=== PATIENT | female | born 1985 | race Caucasian/White ===

== ENCOUNTER 2019-07-02 14:25 | Emergency (ER) | payer BC ==
[2019-07-02 14:46] VITALS: BP 134/100
--- NOTE | 2019-07-02 15:00 | UC ---
UC General HPI - HPI Summary HPI Summary: Pleasant 34 yo female c/o pelvic cramping and vag blood spotting all day. Est 8 weeks . No fever / chills. No sob / cp / palpitations No GI sx. No new urinary sx (+ usual f/u) No loc, no rash. - History of Current Complaint Chief Complaint: UCAbdominalPain Stated Complaint: PERSONAL Hx Obtained From: Patient, Family/Soa Integration Developer Hx Last Menstrual Period: 8 weeks Pain Intensity: 2 - Allergy/Home Medications Allergies/Adverse Reactions: Allergies Allergy/AdvReac Type Severity Reaction Status Date / Time MS Bee Venom [Bee Venom] Allergy Swelling Verified 04/21/16 14:21 Home Medications: Home Medications Pnv No.95/Ferrous Fum/Folic AC [ Vitamin/Iron 28-0.8 mg] 1 tab PO DAILY 07/02/19 [History Confirmed 07/02/19] PMH/Surg Hx/FS Hx/Imm Hx Previously Healthy: Yes Other History Of: Negative For: Anticoagulant Therapy - Surgical History Surgical History: Yes Surgery Procedure, Year, and Place: dental extractions 12/2015 - Family History Known Family History: Positive: Unknown - Social History Alcohol Use: None Alcohol Amount: 3 glass of wine average Substance Use Type: None Smoking Status (MU): Former Smoker Household Exposure Type: Cigarettes - Immunization History Most Recent Influenza Vaccination: NOT IN 2013 Review of Systems All Other Systems Reviewed And Are Negative: Yes Constitutional: Positive: Negative Skin: Positive: Negative Eyes: Positive: Negative ENT: Positive: Negative Respiratory: Positive: Negative Cardiovascular: Positive: Negative Gastrointestinal: Positive: Other - see hpi Motor: Positive: Negative Neurovascular: Positive: Negative Musculoskeletal: Positive: Negative Neurological: Positive: Negative Psychological: Positive: Negative Is Patient Immunocompromised?: No Physical Exam Triage Information Reviewed: Yes Appearance: Well-Appearing - looks tired, but nad, Well-Nourished Vital Signs: Initial Vital Signs Temp 98.6 F 07/02/19 14:42 Pulse 63 07/02/19 14:42 Resp 18 07/02/19 14:42 BP 134/100 07/02/19 14:42 Pulse Ox 100 07/02/19 14:42 Vital Signs Reviewed: Yes Eye Exam: Normal - perrla eomi sw, cp ENT Exam: Normal - mmm Neck exam: Normal Neck: Positive: Supple Respiratory Exam: Normal Respiratory: Positive: Chest non-tender, Lungs clear, Normal breath sounds, No respiratory distress, No accessory muscle use Abdominal Exam: Other - tender mid low abd no r/g + nabs pelvic examination not done d/t (diff dx's) in [facility] (will send to ED). Musculoskeletal Exam: Normal Neurological Exam: Normal - grossly nonfocao Psychological Exam: Normal - conversing easily and appropriately nad Skin Exam: Normal - nondiaphoretic no visible or reported rash Course/Dx - Course Course Of Treatment: Reviewed urine dip and ucg (see report) D/w pt coa / recommendations re transfer to ED. Ms. Patricio carefully considered, will go to ED. Declines EMS, will go via POV. Questions as posed answered to the best of my ability. - Diagnoses Provider Diagnosis: Threatened Discharge - Sign-Out/Discharge Documenting (check all that apply): Patient Departure All imaging exams completed and their final reports reviewed: No Studies - Discharge Plan Condition: Guarded Disposition: HOME-RECOMMEND TO ED Patient Education Materials: Threatened Miscarriage (ED) Referrals: [facility] [place] [facility] [Outside] Additional Instructions: Please go directly to the Emergency Department. Stop and call 911 if problems in the meantime. Do not eat prior going to the Emergency Department. - Billing Disposition and Condition Condition: GUARDED Disposition: Home-Recommend to ED
--- OUTSIDE RECORDS SUMMARY | 2019-07-02 15:22 | XMS REPORT | Continuity of Care Document ---
:1985 Author Organization [facility] Address [address] [place], [place] [id number] Phone Care Team Providers Name Role Phone Ricci ROBERTS, Dennise Unavailable Unavailable PPSFL, NURSE OR MA Unavailable Unavailable Allergies, Adverse Reactions, Alerts Substance Reaction Status No Known Allergies Active Medications Medication Instructions Dosage Effective Dates (start - stop) Status Comments No Drug Therapy Prescribed Problems Condition Effective Dates (start - stop) Clinical Status Comments Encounter for test, result positive Procedures Procedure Date POSITIVE TEST MA ONLY VISIT NEW OTHER Medical Services Scow Captain.Svc. Other Results Test Name Date and Time Measure Units Reference Range Abnormal Flag Status Comments Panel Description: High Sensitivity Urine Test Final High Sensitivity Urine 17:44:51 PositiveInternal Quality Final Test Control: Positive Advance Directives Directive Yes / No Effective Date File Name No information Encounters Encounter Practice Location Reason(s) Diagnoses Date Provider Providers Description For Visit Copied on Encounter [facility] Encounter Ricci [facility] (chief for -2019 Dennise. [address]: Y[address] woo) [address], Dennise Finger test, [place], [place], [facility], [address] [address]. s, [address], positive tel:[phone], [place], [address] [place], [id number], [place], [address]. [place] tel:[phone] tel:[phone] sulting Provider: NURSE OR MA PPSFL. Family History Family Member Diagnosis Age At Onset No information Immunizations Vaccine Date Status Comments No information Payers Payer name Insurance type Covered alliance party ID Authorization(s) [facility] [id number] Social History Type Description Quantity Date Captured Comments Alcohol Use Details Unknown Caffeine Use Details Unknown Tobacco Use Status Unknown Smoking Status Former smoker Non-Smoking Tobacco : No Details Available : No Details Available 2018 Use Details Sex Female Vital Signs Date / Height Weight BMI Pulse Blood Temperature Respiratory Body Head BMI Pulse Inhaled Time: Rate Pressure Rate Surface Circumference percentile Ox Ox Area No information Chief Complaint And Reason For Visit Most recent encounter only, dated '05/26/2019 17:00'. Test ( chief complaint) Reason For Referral Reason For Referral No information Plan Of Treatment Date Type Action Status No information History Of Present Illness Encounter Date Complaint History Of Present Illness No information Functional Status Date Functional Assessment No information Medications Administered Medication Instructions Dosage Effective Dates (start - stop) Status Comments No Drug Therapy Prescribed Instructions Date Instruction Additional Information No information Assessments Type Assessment Date assessment Encounter for test, result positive Goals Health Concern Goal Type Priority Status Date No information Medical Equipment Description Device Paulina Device Identifier Effective Dates (start - stop ) Status No information Mental Status Date Cognitive Assessment No information Health Concerns Observation Date No information Concern Status Date No information
--- NOTE | 2019-07-04 07:31 | UC ---
- Progress Note Progress Note: urine Cx final report: no growth(<1000 cfu/ml) She was sent and seen in ER and has an appointment with OB on 07/08. No change in plan Course/Dx - Diagnoses Provider Diagnoses: Threatened Discharge - Sign-Out/Discharge Documenting (check all that apply): Post-Discharge Follow Up All imaging exams completed and their final reports reviewed: No Studies - Discharge Plan Condition: Guarded Disposition: HOME-RECOMMEND TO ED Patient Education Materials: Threatened Miscarriage (ED) Referrals: [facility] [place] [facility] [Outside] Additional Instructions: Please go directly to the Emergency Department. Stop and call 911 if problems in the meantime. Do not eat prior going to the Emergency Department. - Billing Disposition and Condition Condition: GUARDED Disposition: Home-Recommend to ED
== END 2019-07-02 15:38 | disposition home health service (06) ==
LOC: UCEAST 14:25
DX: O20.0 Threatened abortion (principal); Z3A.08 8 weeks gestation of pregnancy; Z87.891 Personal history of nicotine dependence
CPT/HCPCS: 81002; 81025; 87086; 99202; G0463

== ENCOUNTER 2019-07-02 16:02 | Emergency (ER) | payer BC ==
[2019-07-02 17:01] LABS: Urine Appearance Clear; Urine Bacteria Absent (Absent); Urine Bilirubin Negative (Negative); Urine Blood 3+ (Negative); Urine Color Yellow; Urine Glucose Negative (Negative); Urine Ketones Negative (Negative); Urine Nitrite Negative (Negative); Urine Protein Negative (Negative); Urine Red Blood Cell 1+(3-5/hpf) (Absent); Urine Squamous Epithelial Cell Present (Absent); Urine Urobilinogen Negative (Negative); Urine White Blood Cell Absent (Absent)
[2019-07-02 17:15] LABS: ABS Eosinophils 0.1 10^3/ul (0-0.6); ABS Lymphocytes 1.7 10^3/ul (1.0-4.8); ABS Monocytes 0.6 10^3/ul (0-0.8); ABS Neutrophils 5.7 10^3/ul (1.5-7.7); Hematocrit 40 % (35-47); Hemoglobin 13.9 g/dL (12.0-16.0); Lymphocyte % 21.2 %; Mean Corpuscular HGB Conc 35 g/dL (31-36); Mean Corpuscular Hemoglobin 32 pg (27-31); Mean Corpuscular Volume 93 fL (80-97); Mean Platelet Volume 7.3 fL (7.4-10.4); Platelet Count 257 10^3/uL (150-450); Red Blood Count 4.33 10^6 /uL (3.70-4.87); Red Cell Distribution Width 12 % (10-15); White Blood Count 8.2 10^3/uL (3.5-10.8)
[2019-07-02 17:23] LABS: Activated Partial Thrombo Time 32.4 seconds (26.0-38.0)
[2019-07-02 17:33] LABS: Albumin 4.3 g/dL (3.2-5.2); Albumin/Globulin Ratio 1.7 (1-3); BUN/Creatinine Ratio 12.3 (8-20); Calcium 9.5 mg/dL (8.6-10.3); EGFR African American 148.7 (>60); EGFR Non-African American 122.9 (>60); Globulin 2.6 g/dL (2-4); Potassium 3.9 mmol/L (3.5-5.0); Total Bilirubin 0.4 mg/dL (0.2-1.0); Total Protein 6.9 g/dL (6.4-8.9)
--- NOTE | 2019-07-02 17:45 | ED ---
- HPI Summary HPI Summary: 34-year-old female who is approximately 8 weeks presents with onset of vaginal bleeding at 1:00 PM this afternoon. States bleeding is very light. Has only changed her pad once in the last hour and states that it is not saturated. States noted one very small clot and denies passing any tissue. States she had some mild cramping initially however is pain free at present. Patient has appointment for her initial OB appointment scheduled for 07/08/2019 at [facility] [place]. . States her first was delivered via at 36 weeks due to eclampsia. Denies fever, chills, abdominal pain, back or flank pain, nausea, vomiting, dysuria, frequency, or urgency. - History of Current Complaint Chief Complaint: EDOBProblems Stated Complaint: 8 WKS PREG/BLEEDING/SLIGHT CRAMPING PER PT Time Seen by Provider: 07/02/19 17:42 Hx Obtained From: Patient Pain Intensity: 2 - Assessment Hx Now: No - Allergies/Home Medications Allergies/Adverse Reactions: Allergies Allergy/AdvReac Type Severity Reaction Status Date / Time bee venom protein (honey bee) Allergy Swelling Verified 07/02/19 18:29 PMH/Surg Hx/FS Hx/Imm Hx Previously Healthy: Yes Endocrine/Hematology History: Denies: Hx Anticoagulant Therapy, Hx Blood Disorders, Hx Diabetes, Hx Thyroid Disease, Hx Unexplained Bleeding, Hx Coagulopothy Cardiovascular History: Denies: Hx Hypertension, Hx Pacemaker/ICD Respiratory History: Denies: Hx Asthma, Hx Chronic Obstructive Pulmonary Disease (COPD) History: Denies: Hx Renal Disease Neurological History: Denies: Hx Dementia, Hx Seizures Psychiatric History: Denies: Hx Substance Abuse - Surgical History Surgery Procedure, Year, and Place: dental extractions 12/2015 Infectious Disease History: No Infectious Disease History: Denies: Hx Clostridium Difficile, Hx Hepatitis, Hx Human Immunodeficiency Virus (HIV), Hx of Known/Suspected MRSA, Hx Shingles, Hx Tuberculosis, Hx Known/ Suspected VRE, Hx Known/Suspected VRSA, History Other Infectious Disease, Traveled Outside the [place] in Last 30 Days - Family History Known Family History: Positive: Non-Contributory - Social History Occupation: Employed Full-time Lives: With Family Alcohol Use: None Alcohol Amount: 3 glass of wine average Substance Use Type: Reports: None Smoking Status (MU): Former Smoker Review of Systems Negative: Fever, Chills Cardiovascular: Negative Respiratory: Negative Positive: Abdominal Pain - Cramping. Negative: Vomiting, Nausea Positive: other - Vaginal bleeding. Negative: burning, dysuria, discharge, frequency, flank pain, urgency Musculoskeletal: Negative Skin: Negative Neurological: Negative All Other Systems Reviewed And Are Negative: Yes Physical Exam - Summary Physical Exam Summary: GENERAL APPEARANCE: Well developed, well nourished, alert and cooperative, and appears to be in no acute distress. CARDIAC: Normal S1 and S2. No S3, S4 or murmurs. Rhythm is regular. There is no peripheral edema, cyanosis or pallor. Extremities are warm and well perfused. Capillary refill is less than 2 seconds. Peripheral pulses intact. LUNGS: Clear to auscultation without rales, rhonchi, wheezing or diminished breath sounds. ABDOMEN: Positive bowel sounds. Soft, nondistended, nontender. No guarding or rebound. No masses or hepatosplenomegally. No CVA tenderness. MUSKULOSKELETAL: ROM intact to all extremities. No joint erythema or tenderness. Normal muscular development. Normal gait. SKIN: Skin normal color, texture and turgor with no lesions or eruptions. - Physical Exam Triage Information Reviewed: Yes Vital Signs Reviewed: Yes Diagnostics - Vital Signs Vital Signs Temp Pulse Resp BP Pulse Ox 07/02/19 16:13 98.3 F 70 18 145/102 100 - Laboratory Lab Results: Lab Results 07/02/19 07/02/19 07/02/19 Range/Units 16:43 17:09 17:09 WBC 8.2 (3.5-10.8) 10^3/uL RBC 4.33 (3.70-4.87) 10^6 /uL Hgb 13.9 (12.0-16.0) g/dL Hct 40 (35-47) % MCV 93 (80-97) fL MCH 32 H (27-31) pg MCHC 35 (31-36) g/dL RDW 12 (10-15) % Plt Count 257 (150-450) 10^3/uL MPV 7.3 L (7.4-10.4) fL Neut % (Auto) 69.7 % Lymph % (Auto) 21.2 % Guthrie % (Auto) 7.5 % Eos % (Auto) 1.0 % Baso % (Auto) 0.6 % Absolute Neuts (auto) 5.7 (1.5-7.7) 10^3/ul Absolute Lymphs (auto) 1.7 (1.0-4.8) 10^3/ul Absolute Monos (auto) 0.6 (0-0.8) 10^3/ul Absolute Eos (auto) 0.1 (0-0.6) 10^3/ul Absolute Basos (auto) 0.0 (0-0.2) 10^3/ul Absolute Nucleated RBC 0.0 10^3/ul Nucleated RBC % 0.0 INR (Anticoag Therapy) 1.00 (0.82-1.09) APTT 32.4 (26.0-38.0) seconds Sodium (135-145) mmol/L Potassium (3.5-5.0) mmol/L Chloride (101-111) mmol/L Carbon Dioxide (22-32) mmol/L Anion Gap (2-11) mmol/L BUN (6-24) mg/dL Creatinine (0.51-0.95) mg/dL Est GFR ( Amer) (>60) Est GFR (Non-Af Amer) (>60) BUN/Creatinine Ratio (8-20) Glucose (70-100) mg/dL Lactic Acid (0.5-2.0) mmol/L Calcium (8.6-10.3) mg/dL Total Bilirubin (0.2-1.0) mg/dL AST (13-39) U/L ALT (7-52) U/L Alkaline Phosphatase (34-104) U/L Total Protein (6.4-8.9) g/dL Albumin (3.2-5.2) g/dL Globulin (2-4) g/dL Albumin/Globulin Ratio (1-3) Beta HCG, Quant Urine Color Yellow Urine Appearance Clear Urine pH 7.0 (5-9) Ur Specific [place] 1.010 (1.010-1.030) Urine Protein Negative (Negative) Urine Ketones Negative (Negative) Urine Blood 3+ A (Negative) Urine Nitrate Negative (Negative) Urine Bilirubin Negative (Negative) Urine Urobilinogen Negative (Negative) Ur Leukocyte Esterase Negative (Negative) Urine WBC (Auto) Absent (Absent) Urine RBC (Auto) 1+(3-5/hpf) A (Absent) Ur Squamous Epith Cells Present A (Absent) Urine Bacteria Absent (Absent) Urine Glucose Negative (Negative) Urine Ascorbic Acid * A (Negative) 07/02/19 07/02/19 Range/Units 17:09 17:09 WBC (3.5-10.8) 10^3/uL RBC (3.70-4.87) 10^6 /uL Hgb (12.0-16.0) g/dL Hct (35-47) % MCV (80-97) fL MCH (27-31) pg MCHC (31-36) g/dL RDW (10-15) % Plt Count (150-450) 10^3/uL MPV (7.4-10.4) fL Neut % (Auto) % Lymph % (Auto) % Guthrie % (Auto) % Eos % (Auto) % Baso % (Auto) % Absolute Neuts (auto) (1.5-7.7) 10^3/ul Absolute Lymphs (auto) (1.0-4.8) 10^3/ul Absolute Monos (auto) (0-0.8) 10^3/ul Absolute Eos (auto) (0-0.6) 10^3/ul Absolute Basos (auto) (0-0.2) 10^3/ul Absolute Nucleated RBC 10^3/ul Nucleated RBC % INR (Anticoag Therapy) (0.82-1.09) APTT (26.0-38.0) seconds Sodium 138 (135-145) mmol/L Potassium 3.9 (3.5-5.0) mmol/L Chloride 105 (101-111) mmol/L Carbon Dioxide 27 (22-32) mmol/L Anion Gap 6 (2-11) mmol/L BUN 7 (6-24) mg/dL Creatinine 0.57 (0.51-0.95) mg/dL Est GFR ( Amer) 148.7 (>60) Est GFR (Non-Af Amer) 122.9 (>60) BUN/Creatinine Ratio 12.3 (8-20) Glucose 95 (70-100) mg/dL Lactic Acid 0.9 (0.5-2.0) mmol/L Calcium 9.5 (8.6-10.3) mg/dL Total Bilirubin 0.40 (0.2-1.0) mg/dL AST 13 (13-39) U/L ALT 14 (7-52) U/L Alkaline Phosphatase 44 (34-104) U/L Total Protein 6.9 (6.4-8.9) g/dL Albumin 4.3 (3.2-5.2) g/dL Globulin 2.6 (2-4) g/dL Albumin/Globulin Ratio 1.7 (1-3) Beta HCG, Quant Pending Urine Color Urine Appearance Urine pH (5-9) Ur Specific [place] (1.010-1.030) Urine Protein (Negative) Urine Ketones (Negative) Urine Blood (Negative) Urine Nitrate (Negative) Urine Bilirubin (Negative) Urine Urobilinogen (Negative) Ur Leukocyte Esterase (Negative) Urine WBC (Auto) (Absent) Urine RBC (Auto) (Absent) Ur Squamous Epith Cells (Absent) Urine Bacteria (Absent) Urine Glucose (Negative) Urine Ascorbic Acid (Negative) Result Diagrams: 07/02/19 17:09 07/02/19 17:09 Lab Statement: Any lab studies that have been ordered have been reviewed, and results considered in the medical decision making process. - Ultrasound No standard instances Ultrasound Interpretation Completed By: Radiologist Summary of Ultrasound Findings: EXAM: US , Transvaginal. EXAM DATE/ TIME: 07/02/2019 7:28 PM. CLINICAL HISTORY: 34 years old, female; Lmp or gestational age (in weeks): 04/15/19; Antepartum. complications; Bleeding; ; Prior surgery; Surgery date: 6+ months;. Surgery type: ; Additional info: Vaginal bleeding. TECHNIQUE: Imaging protocol: Real-time transvaginal obstetrical ultrasound of the maternal. pelvis and a first trimester with image documentation. Transvaginal. imaging was used for better evaluation of the fetus and adnexa. COMPARISON: No relevant prior studies available. FINDINGS: EGA: 11 weeks 1 day. TYE: 01/20/2020 (LMP = ). Maternal Pelvis: Uterus: Anteverted retroflexed. Measures 10.7 x 6.3 x 5.8 cm. Ovaries: Right ovary: Measures 2.9 x 2.9 x 1.6 cm for a total volume of 7 cc. No masses. Left ovary: Measures 2.7 x 2.1 x 1.4 cm for a total volume of 4 cc. No masses. : Gestation: Somewhat irregular gestational sac within the endometrial canal. which is contains no yolk sac or pole. The placenta has formed along the. right and anterior aspects. Mean sac diameter = 23 mm, correlates to 7 weeks 3 days (TYE = 02/15/2020). Subchorionic hemorrhage: None. IMPRESSION: Intrauterine of unknown viability showing an ultrasound age of 7. weeks 3 days (TYE = 02/15/2020). Possible blighted ovum. Recommend followup. ultrasound in 7-10 days to confirm viability. Course/Dx - Course Course Of Treatment: 34-year-old female who is approximately 8 weeks presents with onset of vaginal bleeding at 1:00 PM this afternoon. States bleeding is very light. Has only changed her pad once in the last hour and states that it is not saturated. States noted one very small clot and denies passing any tissue. States she had some mild cramping initially however is pain free at present. Patient has appointment for her initial OB appointment scheduled for 07/08/2019 at [facility] [place]. . States her first was delivered via at 36 weeks due to eclampsia. Denies fever, chills, abdominal pain, back or flank pain, nausea , vomiting, dysuria, frequency, or urgency. Afebrile. Mildly hypertensive otherwise vital signs stable. Patient's exam was overall unremarkable. CBC, CMP, coags were all stable. Quantitative hCG of 3447. UA showed 3+ blood. Transvaginal ultrasound revealed an intrauterine of unknown viability with an ultrasound age of 7 weeks 3 days, possible blighted ovum. Recommending follow-up ultrasound in 7-10 days. Discussed findings with patient. She is to keep her appointment with [facility] on 07/08/2019 as scheduled although I have recommended that she call the office first thing Friday morning to see if they would like to evaluate her sooner. Anticipatory guidance and warning symptoms were reviewed with the patient. Verbalizes understanding and agrees with plan of care. - Differential Diagnosis/HQI/PQRI: Spontaneous , Threatened , Ectopic , Intrauterine , First Trimester Bleeding, PID, UTI, Vaginal Bleeding - Diagnoses Provider Diagnoses: Threatened affecting intrauterine Discharge - Sign-Out/Discharge Documenting (check all that apply): Patient Departure Patient Received Moderate/Deep Sedation with Procedure: No - Discharge Plan Condition: Stable Disposition: HOME Patient Education Materials: Threatened Miscarriage (ED) Referrals: No Primary Care Phys,NOPCP [Primary Care Provider] - Bree Boland MD [Medical Doctor] - 6 Days (Keep your appointment as scheduled on 07/08/2019) Additional Instructions: The ultrasound performed in the emergency room tonight showed an intrauterine of unknown viability at a gestational age of 7 weeks 3 days. It is recommended that you have a follow-up ultrasound in 7-10 days. The lab work that was performed was unremarkable. Sure to keep your appointment with [facility] on 07/08/2019 as scheduled. I would recommend that you call the office first thing Friday morning to let them know what was found in the ER tonight. Return to the emergency room if you develop a fever greater than 100.5 F, have severe abdominal pain, severe vaginal bleeding requiring you to change her pad more than once every 2-3 hours, or any worsening of symptoms. - Billing Disposition and Condition Condition: STABLE Disposition: Home
[2019-07-02 21:16] VITALS: BP 141/95
== END 2019-07-02 21:15 | disposition home or self-care (01) ==
LOC: ED 16:02
DX: O20.0 Threatened abortion (principal); Z3A.01 Less than 8 weeks gestation of pregnancy; Z91.030 Bee allergy status; Z87.891 Personal history of nicotine dependence
CPT/HCPCS: 36415; 76817; 80053; 81003; 81015; 83605; 84702; 85025; 85610; 85730; 99283

== ENCOUNTER 2020-09-08 06:04 | Inpatient (IN) ==
[~2020-09-08 06:04] MED LIST: Buffered Lidocaine 1% SYRIN 1 ml INTRADERM ONE; Lactated Ringers 1000 ml BAG 1,000 ML IV SCH; Sodium Citrate/Citric Acid LIQ 15 ML UDC PO ONE
[2020-09-08] MEDS ORDERED: ceFOXitin 2 GM PREMIX 50 ML IVPB ONE (07:00)
[2020-09-08] MEDS ORDERED: ceFOXitin 2 GM IVPREMIX 2 GM/50 ML BAG ONE (07:05)
[2020-09-08] MEDS ORDERED: Lactated Ringers 1000 ml BAG 1,000 ML IV ONE (07:19)
[2020-09-08] MEDS ORDERED: Buffered Lidocaine 1% SYRIN 1 ml INTRADERM ONE (07:19)
[2020-09-08] MEDS ORDERED: ceFOXitin 2 GM IVPREMIX 2 GM/50 ML BAG IVPB ONE (07:19)
[2020-09-08] MEDS ORDERED: Sodium Citrate/Citric Acid LIQ 15 ML UDC ONE (07:19)
[2020-09-08] MEDS ORDERED: Dexamethasone IV 4 MG/ML VIAL 1 ml VIAL ONE (07:35)
[2020-09-08] MEDS ORDERED: Oxytocin 10 UNITS/ML 1 ML VIAL ONE (07:35)
[2020-09-08] MEDS ORDERED: Ondansetron 4 mg VIAL 2 MG/ML 2 ml VIAL ONE (07:35)
[2020-09-08] MEDS ORDERED: Morphine PF AMP (0.5MG/ML) 5 MG/10 ML AMP ONE (07:35)
[2020-09-08] MEDS ORDERED: Lactated Ringers 1000 ml BAG 1,000 ML IV SCH ×2 (08:00→11:00)
[2020-09-08] MEDS ORDERED: EPHEDrine (Pressors) 50 MG/ML VIAL ONE (08:07)
[2020-09-08] MEDS ORDERED: Phenylephrine 40 mcg/mL 10mL (400mcg) SYRINGE ONE (08:30)
[2020-09-08] MEDS ORDERED: Naloxone 0.4 mg VIAL 0.4 mg/ml 1 ml VIAL IV PRN ×2 (08:32→08:34)
[2020-09-08] MEDS ORDERED: DiMENhydriNATE IV 50 mg/ml 1 ml VIAL IV PUSH PRN (08:32)
[2020-09-08] MEDS ORDERED: Acetaminophen IV 1 GM/100ML 1,000 MG/100 ML VIAL IVPB ONE (08:32)
[2020-09-08] MEDS ORDERED: fentaNYL 100 mcg/2 ml 50 MCG/ML VIAL IV PRN (08:32)
[2020-09-08] MEDS ORDERED: Prochlorperazine 5 mg/ml 2 ml VIAL (10 mg) IV PRN (08:34)
[2020-09-08] MEDS ORDERED: Ondansetron 4 mg VIAL 2 MG/ML 2 ml VIAL IV PRN (08:34)
[2020-09-08] MEDS ORDERED: diPHENhydraMINE IV 50 MG/ML 1 ml VIAL (BENADRYL) IV PRN (08:34)
[2020-09-08] MEDS ORDERED: Glycerin ADULT 2.4 gm SUPP PR PRN (10:19)
[2020-09-08] MEDS ORDERED: Dibucaine 1% OINT 28.35 GM TUBE PR PRN (10:19)
[2020-09-08] MEDS ORDERED: Witch Hazel PAD JAR TOPICAL PRN (10:19)
[2020-09-08 12:59] LABS: Urine Benzodiazepine Screen None Detected (None Detect); Urine Cannabinoids Screen None Detected (None Detect); Urine Opiates Screen None Detected (None Detect)
[2020-09-08 18:05] LABS: ABS Lymphocytes 0.8 10^3/ul (1.0-4.8); ABS Neutrophils 14.6 10^3/ul (1.5-7.7); Hematocrit 32 % (35-47); Hemoglobin 11.1 g/dL (12.0-16.0); Lymphocyte % 5.1 %; Mean Corpuscular HGB Conc 34 g/dL (31-36); Mean Corpuscular Hemoglobin 32 pg (27-31); Mean Corpuscular Volume 93 fL (80-97); Mean Platelet Volume 8.5 fL (7.4-10.4); Platelet Count 202 10^3/uL (150-450); Red Cell Distribution Width 13 % (10-15); White Blood Count 16.4 10^3/uL (3.5-10.8)
[2020-09-08 18:22] LABS: Albumin 2.7 g/dL (3.2-5.2); Albumin/Globulin Ratio 1.2 (1-3); BUN/Creatinine Ratio 17.4 (8-20); Calcium 8.5 mg/dL (8.6-10.3); EGFR African American 189.3 (>60); EGFR Non-African American 156.4 (>60); Globulin 2.2 g/dL (2-4); Potassium 4.2 mmol/L (3.5-5.0); Total Bilirubin 0.3 mg/dL (0.2-1.0); Total Protein 4.9 g/dL (6.4-8.9)
[2020-09-09 06:17] LABS: ABS Lymphocytes 1.6 10^3/ul (1.0-4.8); ABS Monocytes 1.1 10^3/ul (0-0.8); ABS Neutrophils 7.6 10^3/ul (1.5-7.7); Eosinophil % 0.4 %; Hematocrit 28 % (35-47); Hemoglobin 9.6 g/dL (12.0-16.0); Lymphocyte % 15.3 %; Mean Corpuscular HGB Conc 35 g/dL (31-36); Mean Corpuscular Hemoglobin 32 pg (27-31); Mean Corpuscular Volume 92 fL (80-97); Mean Platelet Volume 8.2 fL (7.4-10.4); Platelet Count 166 10^3/uL (150-450); Red Cell Distribution Width 13 % (10-15); White Blood Count 10.4 10^3/uL (3.5-10.8)
[2020-09-10 07:58] VITALS: BP 146/90
== END 2020-09-10 11:43 | disposition home or self-care (01) | DRG 540 ==
LOC: MCHOB 06:04
PROVIDERS: ADMIT Obstetrics & Gynecology; ATTEND Obstetrics & Gynecology